=== PATIENT | female | born 1975 | race Two or more races ===

== ENCOUNTER 2018-09-24 13:09 | Emergency (ER) | payer MEDICAID, OTHER ==
[~2018-09-24] VITALS: Ht 157.5 cm; Wt 68.0 kg
[2018-09-24] MEDS ORDERED: SODIUM CHLORIDE 0.9% 1,000 ML IV ONE (13:21)
[2018-09-24 14:27] VITALS: BP 125/81
[2018-09-24 14:31] LABS: Basophils # (auto) 0.1 uL; Basophils % (auto) 0.8 % (0.0-2.0); Eosinophils # (auto) 0.1 uL; Eosinophils % (auto) 1.1 % (0.0-7.0); Hematocrit 42.6 % (36.0-46.0); Lymphocytes # (auto) 1.7 uL; Lymphocytes % (auto) 26.6 % (10.0-50.0); Mean Corpuscular Hemoglobin 29.9 pg (28.0-32.0); Mean Corpuscular Hgb Conc. 35.3 g/dL (32.0-36.0); Mean Corpuscular Volume 84.9 fL (80.0-100.0); Monocytes # (auto) 0.4 uL; Monocytes % (auto) 6.1 % (0.0-12.0); Neutrophils # (auto) 4.1 uL; Neutrophils % (auto) 65.4 % (37.0-80.0); Platelet Count (auto) 329 10^3/uL (140-450); Red Blood Cells 5.02 10^6/uL (4.0-5.20); Red Cell Distribution Width 13.4 % (11.8-14.3); White Blood Cell 6.3 10^3/uL (4.4-10.8)
[2018-09-24 14:43] LABS: Albumin 3.4 g/dL (3.4-5.0); Anion Gap 6 (5-15); Blood Urea Nitrogen 15 mg/dL (7-18); Calcium 8.3 mg/dL (8.5-10.1); Carbon Dioxide 25 mmol/L (21-32); Chloride 105 mmol/L (98-107); Glucose 133 mg/dL (74-106); Potassium 3.4 mmol/L (3.5-5.1); Sodium 136 mmol/L (136-145)
[2018-09-24 14:47] LABS: Alanine Aminotransferase 24 U/L (13-56); Alkaline Phosphatase 86 U/L (45-117); Aspartate Aminotransferase 15 U/L (15-37); BUN/Creatinine Ratio 19.7; Bilirubin, Total 0.2 mg/dL (0.2-1.0); GFR African American 106 mL/min; GFR Non-African American 87 mL/min; Total Protein 7.4 g/dL (6.4-8.2)
[2018-09-24 14:49] LABS: INR 1.03 (0.9-1.15); Partial Thromboplastin Time 25.5 sec (23.78-33.04)
[2018-09-24 14:51] LABS: Urine Bacteria NONE SEEN /hpf (None Seen); Urine Blood Negative /uL (Negative); Urine Mucus FEW (None Seen); Urine Specific Gravity 1.013 (1.001-1.035); Urine WBC 1 /hpf (0 - 5)
== END 2018-09-24 16:22 | disposition home or self-care (01) ==
LOC: EDBD 13:09 → ER 13:13
DX: R42 Dizziness and giddiness (principal); E86.0 Dehydration; I10 Essential (primary) hypertension; F32.9 Major depressive disorder, single episode, unspecified; Z88.6 Allergy status to analgesic agent
CPT/HCPCS: 36415; 70450; 80053; 81001; 83735; 84484; 84702; 85025; 85610; 85730; 93005; 94761; 96360; 99284; J7030